=== PATIENT | female | born 1935 | race Caucasian/White ===

== ENCOUNTER 2020-03-21 09:46 | Outpatient (CLI) | payer MEDICARE, OTHER ==
--- NOTE | 2020-03-14 14:57 | NUR ---
CALLED AND GOT DISCONNECTED. CALLED BACK AND LEFT A MSG ON THE VOICE MAIL WITH TIME DATE AND NUMBER TO CALL R/T COVID SCREEN
[2020-03-21] VITALS (8 sets, daily range): BP systolic 138–169; BP diastolic 57–72; PULSE 60–71; TEMP 98.1
[~2020-03-21] VITALS: Ht 152.5 cm; Wt 66.5 kg
[2020-03-21] MEDS ORDERED: SYNTHROID0.088 MG/T PO (10:13)
[2020-03-21] MEDS ORDERED: TRENTAL 400MG400 MG PO (10:16)
[2020-03-21] MEDS ORDERED: DIOVAN 160MG160 MG PO (10:16)
[2020-03-21] MEDS ORDERED: NORVASC 10MG10 MG PO (10:17)
[2020-03-21] MEDS ORDERED: JANUVIA50 MG PO (10:17)
[2020-03-21] MEDS ORDERED: THE MEDICINE S200 M2 PO (10:18)
[2020-03-21] MEDS ORDERED: ULTRAM ER100 MG PO (10:18)
[2020-03-21] MEDS ORDERED: MAGNESIUM500 MG PO (10:19)
[2020-03-21] MEDS ORDERED: DITROPAN 5MG TAB5 MG PO (10:19)
[2020-03-21] MEDS ORDERED: TUMS500 MG PO (10:25)
[2020-03-21] MEDS ORDERED: NATURAL FLAX1000 MG PO (10:26)
[2020-03-21] MEDS ORDERED: MASON NATURAL2000 IU PO (10:26)
[2020-03-21 11:03] LABS: HEMATOCRIT 39.9 % (37.0-47.0); HEMOGLOBIN 13.3 g/dl (12.5-16.0); MEAN CELL VOLUME 96 fl (80.0-100.0); MEAN CORPUSCULAR HEMOGLOBIN 32 pg (27.0-31.0); MEAN CORPUSCULAR HGB CONC 33 g/dl (33.0-37.0); MEAN PLATELET VOLUME 10.7 fl (7.4-10.4); PLATELET COUNT 313 K/mm3 (130-400); RED BLOOD COUNT 4.18 M/mm3 (4.10-5.30); REDCELL DISTRIBUTION WIDTH-CV 13.2 % (11.5-14.5)
[2020-03-21 11:15] LABS: PROTHROMBIN TIME 11.2 SECONDS (9.7-12.8)
[2020-03-21 11:21] LABS: CALCIUM 10.2 mg/dL (8.4-10.2); CREATININE, serum 0.9 (0.52-1.25); POTASSIUM 4.3 mmol/L (3.4-5.0)
--- NOTE | 2020-03-21 12:15 | NUR ---
Report from Kay GORE. Pt resting in bed. Denies pain and needs at this time. VSS. Son bedside
--- NOTE | 2020-03-21 14:00 | NUR ---
INT discontinued intact. Ambulated with steady gait to bathroom. Getting dressed at this time
--- NOTE | 2020-03-21 14:19 | NUR ---
Discharge instructions given. Transferred to [facility] by [facility]
== END 2020-03-21 14:18 | disposition home or self-care (01) ==
LOC: COL.RAD 09:46
PROVIDERS: Internal Medicine Cardiovascular Disease
DX: I08.0 Rheumatic disorders of both mitral and aortic valves (principal)
CPT/HCPCS: J2704; J7030